=== PATIENT | male | born 1985 | race Two or more races ===

== ENCOUNTER 2017-09-09 08:24 | Emergency (ER) | payer MEDICAID, OTHER ==
[~2017-09-09] VITALS: Ht 167.6 cm; Wt 81.6 kg
--- NOTE | 2017-09-09 08:52 | Emergency Room Report ---
History of Present Illness General Chief Complaint: Pain Source: Patient Present Illness HPI Patient presents with complaints of pain to both shoulders Patient reports that the pain has been ongoing for the past 3 years Worse after work Especially when he has repetitive type motion movement Patient works in construction No reports of acute fall or trauma Denies any headache denies any neck pain denies any weakness in his hands Pain is in the anterior aspect of both shoulders He does feel it sometimes going towards her back area there is no radiation to the forearm Denies any chest pain or shortness of breath patient reports that he has seen his primary physician but was given Tylenol and does not feel that it is helping very much Warm compresses do appear to help On further questioning patient reports that in the last 3 years he has seen his primary physician only 2 times There has been no other intervention or workup Allergies: Coded Allergies: No Known Allergies (Unverified , 09/09/17) Patient History Past Medical History: see triage record Pertinent Family History: none Reviewed Nursing Documentation: PMH: Agreed, PSxH: Agreed Nursing Documentation-PMH Past Medical History: No Stated History Review of Systems All Other Systems: negative except mentioned in HPI Physical Exam Vital Signs Date Time Temp Pulse Resp B/P (MAP) Pulse Ox O2 Delivery O2 Flow Rate FiO2 09/09/17 08:31 98.4 54 18 128/87 98 Room Air 98.4 Sp02 EP Interpretation: reviewed, normal General Appearance: well appearing, no apparent distress Head: normocephalic, atraumatic Eyes: bilateral eye PERRL, bilateral eye EOMI ENT: hearing grossly normal, normal pharynx, TMs + canals normal, uvula midline Neck: full range of motion, supple, no meningismus, no bony tend Respiratory: lungs clear, normal breath sounds, no rhonchi, no respiratory distress, no retraction, no accessory muscle use Cardiovascular #1: normal peripheral pulses, regular rate, rhythm, no edema, no gallop, no JVD, no murmur Gastrointestinal: normal bowel sounds, non tender, soft, no mass, no organomegaly, non-distended, no guarding, no hernia, no pulsatile mass, no rebound Genitourinary: no CVA tenderness Musculoskeletal: other - On rotating the left shoulder, there are some popping sound reproduced, however full rotation is intact, neurovascularly intact equal excel vba developer and sensation Neurologic: oriented x3, responsive, mental health clinician III-XII nml as tested, motor strength/ tone normal, sensory intact Psychiatric: mood/affect normal Skin: normal color, no rash, warm/dry, palpation normal Lymphatic: normal inspection, no adenopathy Medical Decision Making Diagnostic Impression: Primary Impression: Shoulder pain Additional Impression: Shoulder pain, bilateral ER Course There is a significant chronicity to the patient's acute presentation No obvious acute trauma has been identified patient has a benign neurological neurovascular examination Given the duration of symptoms however initial imaging is obtained no obvious acute pathology is entertained Patient requires close follow with primary physician Further outpatient referral and imaging is needed Otherwise stable for initial conservative outpatient trial Other X-Ray Diagnostic Results Other X-Ray Diagnostic Results #1: X-Ray ordered: Left shoulder # of Views/Limited Vs Complete: 3 View Indication: Pain EP Interpretation: Yes Interpretation: no dislocation, no soft tissue swelling, no fractures Impression: No acute disease Electronically Signed by: Israel Aaron DO Other X-Ray Diagnostic Results #2: X-Ray ordered: Right shoulder # of Views/Limited Vs Complete: 3 View Indication: Pain EP Interpretation: Yes Interpretation: no dislocation, no soft tissue swelling, no fractures Impression: No acute disease Electronically Signed by: Israel Aaron DO Last Vital Signs Date Time Temp Pulse Resp B/P (MAP) Pulse Ox O2 Delivery O2 Flow Rate FiO2 09/09/17 08:31 98.4 54 18 128/87 98 Room Air 98.4 Status: improved Disposition: HOME, SELF-CARE Condition: Improved Scripts Ibuprofen* (MOTRIN*) 600 Mg Tablet 600 MG ORAL Q8H Y for For Pain, #20 TAB 0 Refills Prov: ISRAEL AARON D.O. 09/09/17 Referrals: NOT CHOSEN IPA/MD,REFERRING (PCP) Additional Instructions: Patient is provided with the discharge instructions notified to follow up with primary doctor in the next 2-3 days otherwise return to the er with any worsening symptoms. Please note that this report is being documented using [employer] technology. This can lead to erroneous entry secondary to incorrect interpretation by the dictating instrument. ISRAEL AARON D.O. Sep 09, 2017 08:51
[2017-09-09 08:54] VITALS: BP 128/87
[2017-09-09] MEDS ORDERED: IBUPROFEN600 MG ORAL (09:35)
[2017-09-09 09:46] VITALS: BP 128/87
--- NOTE | 2017-09-09 11:56 | Diagnostic Imaging Report ---
Indication: Left shoulder pain Technique: 3 views of the left shoulder Comparison: none Findings: No acute fractures. No dislocations. The joint spaces are preserved Impression: Negative
--- NOTE | 2017-09-09 11:57 | Diagnostic Imaging Report ---
Indication: Right shoulder pain Technique: 3 views of the right shoulder Comparison: none Findings: No acute fractures. No dislocations. The joint spaces are preserved. Impression: Negative
== END 2017-09-09 10:08 | disposition home or self-care (01) ==
LOC: EMR 08:44
DX: M25.512 Pain in left shoulder (principal); M25.511 Pain in right shoulder
CPT/HCPCS: 99283

== ENCOUNTER 2019-01-28 13:42 | Emergency (ER) | payer OTHER ==
[~2019-01-28] VITALS: Ht 167.6 cm; Wt 102.1 kg
[~2019-01-28 13:42] MED LIST: IBUPROFEN600 MG ORAL
[2019-01-28] MEDS ORDERED: NKM (13:50)
[2019-01-28 14:00] VITALS: BP 114/74
[2019-01-28] MEDS ORDERED: DiphenhydrAMINE 50mg/ml Inj IM ONE (14:00)
[2019-01-28] MEDS ORDERED: Metoclopramide 10mg/2ml Inj IM ONE (14:00)
[2019-01-28] MEDS ORDERED: Ketorolac 60mg Inj IM ONE (14:00)
--- NOTE | 2019-01-28 14:40 | NUR ---
ED Nurse Note:pt with meds given states has had a headache since wed that is not improving. amb steady gait no numbness or tingling or weakness.
--- NOTE | 2019-01-28 15:29 | NUR ---
ED Nurse Note:pt relates h/a is much better and requests dc home
[2019-01-28] MEDS ORDERED: BENADRYL25 MG ORAL (15:48)
[2019-01-28] MEDS ORDERED: IBUPROFEN600 MG ORAL (15:48)
--- NOTE | 2019-01-28 16:00 | NUR ---
ER DISCHARGE NOTE: Patient is cleared to be discharged per ERMD, pt is aox4, on room air, with stable vital signs. pt was given dc and prescription instructions, pt was able to verbalize understanding, pt id band removed without complications. pt is able to ambulate with steady gait. pt took all belongings.
[2019-01-28 16:05] VITALS: BP 106/60
--- NOTE | 2019-01-28 18:15 | Emergency Room Report ---
History of Present Illness General Chief Complaint: Headache Source: Patient Present Illness HPI Patient is a 33-year-old male with a history of migraine headaches presenting for headache. He states that this began 3 days prior. Pain is a 9 out of 10 sharp sensation to the left side of the head and does not radiate. He does admit to photophobia. He states this feels similar to previous migraines. He has taken Tylenol which did help but only slightly. Onset was gradual. Has other symptoms including nausea, vomiting, blurred vision, dizziness, neck pain , chest pain, shortness of breath Allergies: Coded Allergies: No Known Allergies (Unverified , 09/09/17) Patient History Past Medical History: see triage record Pertinent Family History: none Reviewed Nursing Documentation: PMH: Agreed; PSxH: Agreed Nursing Documentation-PMH Past Medical History: No Stated History Review of Systems All Other Systems: negative except mentioned in HPI Physical Exam Vital Signs Date Time Temp Pulse Resp B/P (MAP) Pulse Ox O2 Delivery O2 Flow Rate FiO2 01/28/19 13:48 97.9 56 17 114/74 (87) 97 Room Air Sp02 EP Interpretation: reviewed, normal General Appearance: no apparent distress, alert, GCS 15, non-toxic Head: normocephalic, atraumatic Eyes: bilateral eye normal inspection, bilateral eye PERRL ENT: hearing grossly normal, normal pharynx, no angioedema, normal voice Neck: full range of motion, supple/symm/no masses Respiratory: chest non-tender, lungs clear, normal breath sounds, speaking full sentences Cardiovascular #1: regular rate, rhythm, no edema Musculoskeletal: back normal, gait/station normal, normal range of motion, non- tender, no calf tenderness Neurologic: alert, oriented x3, responsive, motor strength/tone normal, sensory intact, speech normal Psychiatric: judgement/insight normal, memory normal, mood/affect normal, no suicidal/homicidal ideation Skin: no rash Medical Decision Making PA Attestation Dr. Barnes is my supervising physician. Patient management was discussed with my supervising physician Diagnostic Impression: Primary Impression: Migraine Qualified Codes: G43.909 - Migraine, unspecified, not intractable, without status migrainosus ER Course Patient is a 33-year-old male with a history of migraine headaches presenting for headache. Differential diagnoses include but not limited to Migraine, tension headache, cluster MANDUJANO, CVA, among others PE: Vitals stable. NAD Head is NC/AT. +TTP over the L lateral head. No deformity Neck is soft and non tender PERRL. No nystagmus Pt is given IM Toradol, Benadryl, reglan, and allowed to rest in ER Upon reevaluation, patient states that pain has decreased to a 2 out of 10 and he states he is ready for discharge. He is discharged home with similar medications. He is told to follow-up with his primary doctor for further evaluation. ER precautions given Last Vital Signs Date Time Temp Pulse Resp B/P (MAP) Pulse Ox O2 Delivery O2 Flow Rate FiO2 01/28/19 16:05 50 18 106/60 98 Room Air 01/28/19 15:29 97.8 Status: improved Disposition: HOME, SELF-CARE Condition: Improved Scripts Diphenhydramine Hcl* (BENADRYL*) 25 Mg Capsule 25 MG ORAL Q8HR PRN for Itching, #10 CAP Prov: MARY MURILLO 01/28/19 Ibuprofen* (MOTRIN*) 600 Mg Tablet 600 MG ORAL Q8H PRN for For Pain, #30 TAB 0 Refills Prov: MARY MURILLO 01/28/19 Patient Instructions: Migraine Headache Additional Instructions: I discussed my findings with the patient. All questions and concerns have been answered. Treatment and medication compliance have been addressed. I advised the patient that they need to follow up with PMD in 3-5 days. Return to ED if symptoms worsen, new symptoms arise, or if needed for any reason. Patient verbalized understanding of discharge instructions. MARY MURILLO Jan 28, 2019 18:15
== END 2019-01-28 16:00 | disposition home or self-care (01) ==
LOC: EMR 14:20
DX: G43.909 Migraine, unspecified, not intractable, without status migrainosus (principal)
CPT/HCPCS: 96372; 99283; J1200; J2765